=== PATIENT | female | born 1985 | race Caucasian/White ===

== ENCOUNTER 2021-05-11 23:11 | Emergency (ER) | payer SELFPAY ==
[2021-05-11 23:39] VITALS: BP 120/75; PULSE 111; TEMP 98.2; BMI 21.9
== END 2021-05-12 01:26 | disposition home or self-care (01) ==
LOC: JER 23:11
DX: H01.001 Unspecified blepharitis right upper eyelid (principal)
CPT/HCPCS: 99281-25